=== PATIENT | female | born 1945 | race Caucasian/White ===

== ENCOUNTER 2020-05-01 06:20 | Day surgery (SDC) | payer MEDICAID, SELFPAY ==
[~2020-05-01] VITALS: Ht 157.5 cm; Wt 66.7 kg
[2020-05-01] MEDS: MIDAZOLAM HCL 5 MG/5 ML VIAL ONE ×4 (09:37→09:56)
[2020-05-01] MEDS: fentaNYL CITRATE/PF 100 MCG/2 ML AMP ONE ×3 (09:38→09:47)
[2020-05-01 10:15] VITALS: BP_SYST 116
== END 2020-05-01 12:55 | disposition home or self-care (01) ==
LOC: SMU 06:20 → SDS 06:20
PROVIDERS: ATTEND Internal Medicine
DX: K62.5 Hemorrhage of anus and rectum (principal); K57.30 Diverticulosis of large intestine without perforation or abscess without bleeding; K64.8 Other hemorrhoids; E78.00 Pure hypercholesterolemia, unspecified; Z88.0 Allergy status to penicillin; Z87.891 Personal history of nicotine dependence
CPT/HCPCS: 36415; 45378; 87426; 99152; 99153; G0378; J2250; J3010; J7030